=== PATIENT | male | born 1980 | race Caucasian/White ===

== ENCOUNTER 2019-04-08 04:06 | Emergency (ER) | payer SELFPAY ==
[2019-04-08 04:06] VITALS: BMI 24.3
--- NOTE | 2019-04-08 04:29 | C.PDOC ---
History Of Present Illness Pt found collapsed by his mother. Pt has a history of meth abuse, and has been clean for 9 years, but started to re-use. Is arousable to verbal stimuli, follows commands.Denies suicidal or homicidal ideation. Time Seen by Provider: 04/08/19 04:29 Chief Complaint (Nursing): Substance Abuse History Per: Family History/Exam Limitations: no limitations Onset/Duration Of Symptoms: Hrs Current Symptoms Are (Timing): Still Present Suicide/Self Injury Attempted (Context): Other Modifying Factor(s): Other (meth) Severity: Moderate Pain Scale Rating Of: 4 Associated Symptoms: denies: Anger, Anxiety, Agitation Involuntary Hold By: None Recent travel outside of the [place]: No Additional History Per: Family Past Medical History Reviewed: Historical Data, Nursing Documentation, Vital Signs Vital Signs: Last Vital Signs Temp 98.3 F 04/08/19 04:16 Pulse 81 04/08/19 04:16 Resp 22 04/08/19 04:16 BP 94/50 L 04/08/19 04:16 Pulse Ox 98 04/08/19 04:16 Primary Care Provider: Non [facility] Provider, - Medical History PMH: Bipolar Disorder, HTN, Hyperlipidemia Family History: States: No Known Family Hx - Social History Hx Alcohol Use: No Hx Substance Use: Yes (crytal meth) Review Of Systems Constitutional: Negative for: Fever, Chills Eyes: Negative for: Redness Cardiovascular: Negative for: Chest Pain Respiratory: Negative for: Shortness of Breath Gastrointestinal: Negative for: Abdominal Pain Musculoskeletal: Negative for: Back Pain Skin: Negative for: Rash Neurological: Negative for: Weakness Psych: Negative for: Depression, Suicidal ideation Physical Exam - Physical Exam Appears: Non-toxic Skin: Warm, Dry Head: Normacephalic Eye(s): bilateral: Normal Inspection Oral Mucosa: Moist Neck: Supple Chest: Symmetrical Cardiovascular: Rhythm Regular Respiratory: No Rales, No Rhonchi, No Wheezing Gastrointestinal/Abdominal: Soft, No Tenderness, No Distention Back: No CVA Tenderness Extremity: Normal ROM Extremity: Bilateral: Atraumatic, Normal Color And Temperature Neurological/Psych: Oriented x3, Slow To Respond With Command Gait: Unable To Assess ED Course And Treatment - Laboratory Results Result Diagrams: 04/08/19 04:51 04/08/19 04:51 O2 Sat by Pulse Oximetry: 98 Pulse Ox Interpretation: Normal Disposition Counseled Patient/Family Regarding: Studies Performed, Diagnosis - Disposition Disposition Time: 04:29 Condition: FAIR Forms: [employer] (Persian) - Clinical Impression Clinical Impression: Drug abuse, Desire for detoxification Physician Patient Turnover Patient Signed Over To: Montserrat Wagner Handoff Comments: Pending Crisis eval and disposition
[2019-04-08] MEDS ORDERED: Sodium Chloride 0.9% 1,000 ML IV ONE ×2 (04:30→07:17)
[2019-04-08 04:57] LABS: BASO % 0.5 % (0.0-2.0); EOS # 0.1 K/uL (0.0-0.7); EOS % 2.4 % (0.0-4.0); HEMOGLOBIN 13.8 g/dL (12.0-18.0); LYMPH # 1.4 K/uL (1.0-4.3); LYMPH % 28.1 % (20.0-40.0); MEAN CELL VOLUME 90.7 fL (80.0-94.0); MEAN CORPUSCULAR HEMOGLOBIN 30.4 pg (27.0-31.0); MEAN CORPUSCULAR HGB CONC 33.5 g/dL (33.0-37.0); MEAN PLATELET VOLUME 6.8 fL (7.2-11.7); MONO # 0.9 K/uL (0.0-0.8); MONO % 16.9 % (0.0-10.0); NEUT # 2.7 K/uL (1.8-7.0); NEUT % 52.1 % (50.0-75.0); RBC 4.53 Mil/uL (4.40-5.90); RED CELL DISTRIBUTION WIDTH 13.5 % (11.5-14.5); WHITE BLOOD COUNT 5.1 K/uL (4.8-10.8)
[2019-04-08 05:17] LABS: ALB/GLOB RATIO 1.4 (1.0-2.1); ALBUMIN 3.6 g/dL (3.5-5.0); ALT/SGPT 17 U/L (21-72); AST/SGOT 31 U/L (17-59); BLOOD UREA NITROGEN 22 mg/dL (9-20); CALCIUM 7.9 mg/dl (8.6-10.4); GFR NON-AFRICAN AMERICAN > 60
[2019-04-08 06:14] LABS: SQUAMOUS EPITHIAL < 1 /hpf (0-5); URINE BILIRUBIN NEGATIVE (NEGATIVE); URINE BLOOD 2+ (NEGATIVE); URINE COLOR Yellow (YELLOW); URINE GLUCOSE (UA) NORMAL (Normal); URINE HYALINE CAST 0-2 /lpf (0-2); URINE LEUKOCYTE ESTERASE NEG Leu/uL (Negative); URINE PROTEIN 1+ mg/dL (NEGATIVE)
[2019-04-08 06:20] LABS: BARBITURATES, UR NEGATIVE (NEGATIVE); OPIATES, UR NEGATIVE (NEGATIVE); PHENCYCLIDINE, UR NEGATIVE (NEGATIVE); URINE CLARITY Hazy (Clear)
[2019-04-08 06:23] LABS: BENZODIAZEPINES, UR POSITIVE (NEGATIVE)
[2019-04-08] MEDS ORDERED: Sodium Chloride 0.9% 1,000 ML ONE (07:20)
[2019-04-08 08:13] VITALS: O2SAT 100
[2019-04-08 09:29] VITALS: BP 100/66; PULSE 85; RESP 15; TEMP 97.6
== END 2019-04-08 09:29 | disposition home or self-care (01) ==
LOC: C.ER 04:06
DX: F19.10 Other psychoactive substance abuse, uncomplicated (principal)
CPT/HCPCS: 80053; 81001; 82948; 83735; 84100; 85025; 96360; 96361; 99285; G0480; J7030